=== PATIENT | male | born 1990 | race Caucasian/White ===

== ENCOUNTER 2020-08-02 13:28 | Emergency (ER) | payer BC, SELFPAY ==
[2020-08-02 13:38] VITALS: BP 115/73; PULSE 92; TEMP 36.7; O2SAT 100
--- NOTE | 2020-08-02 13:45 | DI.RAD_ITS ---
Exam(s) XR CLAVICLE RT EXAM: XR CLAVICLE RT CLINICAL HISTORY: R shoulder injuy, pain, clavicle deformed. TECHNIQUE: 2D digital imaging was performed. COMPARISON: No exams were available for comparison FINDINGS: There is a displaced oblique midshaft fracture of the right clavicle. Approximately 1.5 cm displacem ent. AC joint is not distracted. No osseous lesions. Visualized glenohumeral joint unremarkable IMPRESSION: Displaced oblique midshaft fracture of the clavicle. DATA REPOSITORY: RADIATION DOSE DELIVERED:
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
[2020-08-02] MEDS: Acetaminophen 500 MG TAB 1000 MG PO (14:12)
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
[2020-08-02] MEDS: HYDROcodone 5/Acetaminophen 325 TAB PO (15:48)
== END 2020-08-02 18:24 | disposition home or self-care (01) ==
PROVIDERS: Emergency Provider Emergency Medicine
DX: S42.021A Displaced fracture of shaft of right clavicle, initial encounter for closed fracture (principal); V19.3XXA Pedal cyclist (driver) (passenger) injured in unspecified nontraffic accident, initial encounter
CPT/HCPCS: 99283; 73000

== ENCOUNTER 2020-08-02 15:30 | Emergency (ER) | payer BC, SELFPAY | END 2020-08-02 18:33 | LOC: ER 15:42 | DX: R69 Illness, unspecified (principal) ==